=== PATIENT | male | born 1955 | race Caucasian/White ===

== ENCOUNTER 2019-03-21 13:01 | Emergency (ER) | payer SELFPAY ==
[2019-03-21] MEDS ORDERED: Aspirin Chewable 81 MG TAB ONE (13:35)
[2019-03-21] MEDS ORDERED: Nitroglycerin 2% Ointment 1 INCH/1 GM Packet ONE (13:35)
[2019-03-21] MEDS ORDERED: Acetaminophen 500 MG TAB ONE (13:41)
--- NOTE | 2019-03-21 13:46 | RAD ---
CHEST TWO VIEWS: 03/21/2019 PROVIDED CLINICAL HISTORY: Cough. COMPARISON: None. FINDINGS: Cardiac and mediastinal silhouette is within normal limits. There is blunting of the left costophreni c angle and density along the inferior aspects of the left lateral chest wall that may reflect scarri ng or loculated fluid. There is no evidence for freely layering pleural fluid on the lateral view. Th e lungs appear clear. There is no evidence for pneumothorax. IMPRESSION: Left lateral pleural density, as described. Consider followup. POS: JAMES
[2019-03-21 13:59] LABS: #Basophils 0.3 thou/uL (0.0-0.2); #Eosinphils 0.3 thou/uL (0.0-0.7); #Lymphocytes 1.2 thou/uL (1.20-3.40); #Monocytes 1.3 thou/uL (0.11-0.59); #Neutrophils 12.1 thou/uL (1.40-6.50); %Eosinophils 2.1 % (0.0-10.0); %Lymphocytes 7.9 % (21.0-51.0); %Monocytes 8.6 % (0.0-10.0); %Neutrophils 79.5 % (42.0-75.0); Hemoglobin 13.7 g/dL (14.0-18.0); Mean Corpuscular HGB CONC 30.1 g/dL (32.0-36.0); Mean Corpuscular Hemoglobin 29.8 pg (27.0-31.0); Mean Corpuscular Volume 98.8 fL (78.0-98.0); Mean Platelet Volume 7.7 fL (7.4-10.4); Platelet Count 375 thou/uL (130-400); RBC Distribution Width 13.6 % (11.5-14.5); White Blood Cell (WBC) Count 15.3 thou/uL (4.8-10.8)
[2019-03-21 14:14] LABS: ALT (SGPT) 58 U/L (8-55); AST (SGOT) 50 U/L (5-34); Albumin 3.5 g/dL (3.4-4.8); Alkaline Phosphatase 129 U/L (40-110); Anion Gap 14 mmol/L (10-20); BUN (Urea Nitrogen) 18 mg/dL (8.4-25.7); Bilirubin, Total 0.4 mg/dL (0.2-1.2); Calc. Creatinine Clearance 0 mL/min (70-130); Calcium 8.8 mg/dL (7.8-10.44); Carbon Dioxide 24 mmol/L (23-31); Chloride 102 mmol/L (98-107); Estimated GFR-MDRD Greater than 90; Globulin 3.4 g/dL (2.4-3.5); Glucose 96 mg/dL (80-115); Potassium 4.3 mmol/L (3.5-5.1); Protein, Total 6.9 g/dL (5.8-8.1); Sodium 136 mmol/L (136-145)
== END 2019-03-21 15:37 | disposition home or self-care (01) ==
LOC: MADERS 13:01
DX: J18.9 Pneumonia, unspecified organism (principal); I10 Essential (primary) hypertension; Z79.899 Other long term (current) drug therapy; Z87.891 Personal history of nicotine dependence
CPT/HCPCS: 71046; 80053; 84484; 85025

== ENCOUNTER 2019-08-28 11:51 | Outpatient (CLI) | payer OTHER ==
[2019-08-28 12:21] LABS: ALT (SGPT) 62 U/L (8-55); AST (SGOT) 51 U/L (5-34); Albumin 4.1 g/dL (3.4-4.8); Alkaline Phosphatase 116 U/L (40-110); Anion Gap 17 mmol/L (10-20); BUN (Urea Nitrogen) 13 mg/dL (8.4-25.7); Bilirubin, Total 0.6 mg/dL (0.2-1.2); Calc. Creatinine Clearance 0 mL/min (70-130); Calcium 9.2 mg/dL (7.8-10.44); Carbon Dioxide 22 mmol/L (23-31); Chloride 102 mmol/L (98-107); Cholesterol 112 mg/dl (< 200 Desired); Estimated GFR-MDRD 78; Globulin 3.7 g/dL (2.4-3.5); Glucose 89 mg/dL (80-115); Potassium 4.7 mmol/L (3.5-5.1); Protein, Total 7.8 g/dL (5.8-8.1); Sodium 136 mmol/L (136-145)
== END 2019-08-28 11:52 | disposition home or self-care (01) ==
LOC: MADLAB 11:51
DX: Z00.00 Encounter for general adult medical examination without abnormal findings (principal)
CPT/HCPCS: 36415; 80053; 82465